=== PATIENT | female | born 1995 | race Caucasian/White ===

== ENCOUNTER 2018-06-05 13:40 | Inpatient (IN) | payer OTHER ==
[2018-06-05] MEDS ORDERED: DEXTROSE 5%-LACTATED RINGERS 1,000 ML IV SCH (20:08)
[2018-06-05 21:53] LABS: BASO % 0.3 % (0-2.0); EOS % 1.2 % (0-4.5); HEMATOCRIT 34.8 % (32.4-45.2); HEMOGLOBIN 11.6 GM/dL (10.7-15.3); LYMPH % 9.8 % (8-40); MCH 27.6 pg (25.7-33.7); MCHC 33.3 g/dl (32.0-36.0); MEAN CELL VOLUME 82.8 fl (80-96); MEAN PLT VOLUME 8.5 fl (7.5-11.1); MONO % 8.9 % (3.8-10.2); NEUT % 79.8 % (42.8-82.8); PLATELET COUNT 347 K/MM3 (134-434); RBC 4.21 M/mm3 (3.60-5.2); RDW 14.7 % (11.6-15.6); WHITE BLOOD COUNT 6.9 K/mm3 (4.0-10.0)
[2018-06-05 22:05] LABS: INR 0.93 (0.83-1.09)
[2018-06-05 22:07] LABS: ACTIVATED PTT 23.9 SECONDS (25.2-36.5)
[2018-06-05 22:12] LABS: ANION GAP 8 MMOL/L (8-16); BLOOD UREA NITROGEN 5 mg/dL (7-18); CALCIUM 8.5 mg/dL (8.5-10.1); CHLORIDE 106 mmol/L (98-107); CO2 23 mmol/L (21-32); CREATININE 0.4 mg/dL (0.55-1.3); GLUCOSE,RANDOM 67 mg/dL (74-106); POTASSIUM 3.9 mmol/L (3.5-5.1); SODIUM 137 mmol/L (136-145)
[2018-06-05] MEDS ORDERED: DINOPROSTONE 10 MG VAGINAL SUPPOSITORY VG ONE (23:15)
--- NOTE | 2018-06-05 23:15 | PN ---
Progress Note (short form) - Note Progress Note: Called to patient bedside for cervidil insertion Patient without complaints T 98.5 BP 133/72 HR 99 FHT 140 mod lilli + accel, no decels TOCO occasional contractions Cx / -4 Cervidil IOL discussed. Risks / benefits reviewed Cervidil placed in posterior fornix Patient tolerated well
[2018-06-05 23:24] VITALS: BMI 27.6
[2018-06-05] MEDS ORDERED: PROMETHAZINE HCL 25 MG/1 ML VIAL IVPUSH ONE (23:31)
[2018-06-05] MEDS ORDERED: BUTORPHANOL TARTRATE 1 MG/ML VIAL IVPB ONE (23:31)
--- NOTE | 2018-06-06 00:59 | HP ---
Past Medical History - Admission Chief Complaint: IOL, IUGR History of Present Illness: 23yo @ 39.3wks here for IOL for IUGR 9th percentile. No VB/LOF. No ctx. +FM Preg c/b elevated DSR on quad- nl amnio, IUGR 9th %tile on sonogram with MFM at [facility] (although EFW 6.5lbs). History of borderline personality disorder History Source: Patient Limitations to Obtaining History: No Limitations - Past Medical History [employer]: No: Alzheimer's, CVA, Dementia, Migraine, Multiple Sclerosis, Peripheral Neuropathy, Parkinson's, Seizure, Syncope, TIA, Vertigo, Other Pulmonary: No: Asthma, Bronchitis, Cancer, COPD, O2 Dependent, Pneumonia, Previously Intubated, Pulmonary Embolus, Pulmonary Fibrosis, Sleep Apnea, Other ...: 2 ...Para: 0 ...Term: 0 ...: 0 ...Spon : 0 ...Induced : 1 ...Multiple Gestation: 0 ...LMP: 08/26/17 ... Weeks Gestation by Dates: 40.3 ...EDC by Dates: 06/02/18 ...EDC by Sono: 06/10/18 Heme/Onc: No: Anemia, B12 Deficiency, Bleeding Disorder, Cancer, Current Chemotherapy, Current Radiation Therapy, Hemochromatosis, Hypercoaguable State, Myeloproliferative Synd, Sickle Cell Disease, Sickle Cell Trait, Thrombocytopenia, Other Infectious Disease: No: AIDS, C-Diff, Herpes Zoster, HIV, MRSA, STD's, Tuberculosis, VREF, Other Psych: No: Addictions, Anxiety, Bipolar, Depression, Panic, Psychosis, Schizophrenia, Other - Past Surgical History Past Surgical History: Yes: None Hx Myomectomy: No Hx Transabdominal Cerclage: No - Advance Directives Advance Directives: Yes: Living Will, MOLST. No: Health Care Proxy, DNR, Organ Donor, Tissue Donor - Smoking History Smoking history: Never smoked Have you smoked in the past 12 months: No - Alcohol/Substance Use Hx Alcohol Use: No History of Substance Use: reports: None - Social History Usual Living Arrangement: Yes: Alone ADL: Independent History of Recent Travel: No Home Medications - Allergies Allergies/Adverse Reactions: Allergies Allergy/AdvReac Type Severity Reaction Status Date / Time No Known Allergies Allergy Verified 05/24/18 16:43 - Home Medications Home Medications: Ambulatory Orders Iron 2 tab PO DAILY 06/05/18 Vitamins (Sjr) - 1 tab PO DAILY 06/05/18 Physical Exam - Maternity Vital Signs: Vital Signs Temperature 98.5 F 06/05/18 22:00 Pulse Rate 92 H 06/05/18 23:00 Respiratory Rate 20 06/05/18 23:00 Blood Pressure 126/72 06/05/18 23:00 O2 Sat by Pulse Oximetry (%) - Labs Lab Results: CBC, BMP 06/05/18 21:33 06/05/18 21:33 Assessment/Plan 23yo @ 39.3wks here for IOL for IUGR Admit to L&D Cervidil IOL Epidural prn pain Cat I tracing Augment with pitocin/AROM prn when more favorable Anticipate KULWANT Yeung MD
[2018-06-06] MEDS: DEXTROSE 5%-LACTATED RINGERS 1,000 ML IV SCH ×3 (03:15→18:00)
--- NOTE | 2018-06-06 09:53 | PN ---
Progress Note (short form) - Note Progress Note: 23 yrs , 39.3 weeks by sono & 40.2 weeks by dates s/p cervidil since 11.05 PM 06/05/18 . induction is done due to recommendation by MFM due to sono SGA 9 % tile , efw 6'5" . faiza 12.02 , BPP 8/8 , 39.2 weeks GA ( by Sono on 06/05/18 ) presently at 10.40 AM tachysystole uc q1 min FHR 170 bpm , variable decels , cat-2 are noted Cervidil removed . cx 1cm /post/70 %/AL , Vx -3 Selected Entries 06/06/18 06/06/18 08:00 09:15 Temperature 99.6 F Pulse Rate 93 H 79 Blood Pressure 128/59 L 121/61 ct Laboratory Tests 06/05/18 06/05/18 06/05/18 21:33 21:33 21:33 WBC 6.9 RBC 4.21 Hgb 11.6 Hct 34.8 Plt Count 347 PT with INR 11.00 INR 0.93 PTT (Actin FS) 23.9 L Sodium 137 Potassium 3.9 Chloride 106 Carbon Dioxide 23 BUN 5 L Creatinine 0.4 L Random Glucose 67 L Calcium 8.5 RPR Titer Blood Type Antibody Screen 06/05/18 06/05/18 21:33 21:33 WBC RBC Hgb Hct Plt Count PT with INR INR PTT (Actin FS) Sodium Potassium Chloride Carbon Dioxide BUN Creatinine Random Glucose Calcium RPR Titer Nonreactive Blood Type A POSITIVE Antibody Screen Negative Plan Ct Observation 10.15 AM UC are dysfunctional 1min x 5-6 Uc followed by pause 5-6 min FHR 160 bpm , cat-1 reactive plan will start Pitocin Induction after 11.00AM
[2018-06-06] MEDS ORDERED: OXYTOCIN 30 UNITS in 0.9% NS 30 UNIT/500 ML INFUS.BAG IVPB SCH (11:00)
--- NOTE | 2018-06-06 13:45 | PN ---
Progress Note (short form) - Note Progress Note: pt resting uc 2-3 min fhr 140-150 reactive , cat -1 . pitocin is not started yet. pelvic exam :13.30 Hr 1cm/70%/Vx-3/Post/OR Selected Entries 06/06/18 13:00 Temperature 98.8 F Pulse Rate 86 Blood Pressure 128/[address] Noble contact lens blocker and cutter , notified about patient for labor management .
--- NOTE | 2018-06-06 21:02 | PN ---
Progress Note (short form) - Note Progress Note: cx 3 cm 75 vx -2 , fhr cat 1, , irregular contraction, arom, clear
[2018-06-06] MEDS ORDERED: ELECTROLYTE-148 SOLN 1,000 ML IV SCH ×2 (21:30→22:30)
--- NOTE | 2018-06-06 22:07 | PN ---
Progress Note (short form) - Note Progress Note: cx 4 cm 80 vx -2 , early decel with contraction, ,acceleration with scalp stimulation . lt side, O2 , cont. observation and FHM,
[2018-06-06] MEDS ORDERED: NALOXONE HCL 0.4 MG/ML VIAL IVPUSH PRN (22:48)
[2018-06-06] MEDS ORDERED: FENTANYL/BUPIVACAINE/NS/PF - PCEA - 50 ML DISP.SYRIN EP SCH (23:00)
[2018-06-07] MEDS ORDERED: METHYLERGONOVINE MALEATE 0.2 MG/1 ML AMP IM PRN (01:59)
[2018-06-07] MEDS ORDERED: BENZOCAINE 28 GM HEMORRHOIDAL OINTMENT TP PRN (01:59)
[2018-06-07] MEDS ORDERED: BISACODYL 10 MG SUPP.RECT RC PRN (01:59)
[2018-06-07] MEDS ORDERED: D5W-LR W/ 20 UNITS OXYTOCIN 1,000 ML IV SCH (02:00)
[2018-06-07] MEDS ORDERED: OXYTOCIN 20 UNITS in 0.9% NS 20 UNIT/1,000 ML INFUS.BAG IV SCH (02:00)
--- NOTE | 2018-06-07 02:03 | PN ---
Delivery - Delivery Vaginal Delivery: Spontaneous Episiotomy/Laceration: Midline (TERRELL, cord around neck once, ant and post. shoulders with no difficulty , baby girl , 9/9 . episiotomy in 3 layes, ebl 300 cc, no complication) Delivery, Single - Feeding Plan Initial Plan: Exclusive throughout hospitalization
[2018-06-07 02:12] LABS: ARTERIAL BLOOD GAS PCO2 43.6 mmHg (35-45); ARTERIAL BLOOD GAS pH 7.32 (7.35-7.45)
[2018-06-07 02:22] LABS: VENOUS PH 7.33 (7.32-7.42); VENOUS PO2 32.1 mmHg (28-48)
[2018-06-07] MEDS: ACETAMINOPHEN 325 MG TABLET (FP) PO PRN ×4 (02:35→21:07)
[2018-06-07] MEDS: IBUPROFEN 600 MG TABLET (FP) PO PRN ×4 (02:35→21:07)
[2018-06-07] MEDS: PRENATAL VITAMINS W/ FOLIC ACID TABLET (FP) PO SCH (10:00)
[2018-06-07] MEDS: BENZOCAINE 20% 57 GM BOTTLE TP PRN (10:32)
[2018-06-07] MEDS: WITCH HAZEL 50% (TUCKS) 40 PAD/JAR PAD TP PRN (10:32)
[2018-06-07] MEDS: FERROUS SO4 325 MG TABLET (FP) PO SCH ×2 (15:17→17:08)
--- NOTE | 2018-06-07 19:22 | PN ---
Mental Health Exam - Mental Status Exam Alert and Oriented to: Time, Place, Person Cognitive Function: Grossly Intact Patient Appearance: Disheveled Mood: Apprehensive, Hopeful Affect: Constricted Patient Behavior: Dependent, Passive Speech Pattern: Clear Voice Loudness: Mildly Soft/Quiet Thought Process: Intact Thought Disorder: Not Present Hallucinations: None Suicidal Ideation: None Homicidal Ideation: None Insight/Judgement: Good Sleep: Fair Appetite: Fair Muscle strength/Tone: Normal Gait/Station: Shuffling
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
[2018-06-08] MEDS: ACETAMINOPHEN 325 MG TABLET (FP) PO PRN ×2 (06:56→17:09)
[2018-06-08] MEDS: IBUPROFEN 600 MG TABLET (FP) PO PRN ×2 (06:57→17:10)
[2018-06-08] MEDS: FERROUS SO4 325 MG TABLET (FP) PO SCH ×2 (06:59→16:57)
--- NOTE | 2018-06-08 08:12 | PN ---
Post Progress Note - Subjective Subjective: no complains except cramps , scale 7/10 no c/o depression Post Day: 1 Type of Delivery: Vital Signs: Vital Signs Temperature 98.2 F 06/07/18 22:00 Pulse Rate 84 06/07/18 22:00 Respiratory Rate 18 06/07/18 22:00 Blood Pressure 129/74 06/07/18 22:00 O2 Sat by Pulse Oximetry (%) 100 06/07/18 01:30 Breast Exam: Yes: Soft, Other (BF ). No: Engorged Uterus: Yes: Fundus Firm, Fundus below umbilicus Lochia: Yes: Rubra Lochia, amount: Moderate Extremities: Yes: Calves non-tender Perineum: Yes: Intact, Episiotomy (healing ) Activity: Ambulating - Labs Labs: CBC WBC 6.9 K/mm3 (4.0-10.0) 06/05/18 21:33 RBC 4.21 M/mm3 (3.60-5.2) 06/05/18 21:33 Hgb 11.6 GM/dL (10.7-15.3) 06/05/18 21:33 Hct 34.8 % (32.4-45.2) 06/05/18 21:33 MCV 82.8 fl (80-96) 06/05/18 21:33 MCH 27.6 pg (25.7-33.7) 06/05/18 21:33 MCHC 33.3 g/dl (32.0-36.0) 06/05/18 21:33 RDW 14.7 % (11.6-15.6) 06/05/18 21:33 Plt Count 347 K/MM3 (134-434) 06/05/18 21:33 MPV 8.5 fl (7.5-11.1) 06/05/18 21:33 Absolute Neuts (auto) 5.5 K/mm3 (1.5-8.0) 06/05/18 21:33 Neutrophils % 79.8 % (42.8-82.8) 06/05/18 21:33 Lymphocytes % 9.8 % (8-40) 06/05/18 21:33 Monocytes % 8.9 % (3.8-10.2) 06/05/18 21:33 Eosinophils % 1.2 % (0-4.5) 06/05/18 21:33 Basophils % 0.3 % (0-2.0) 06/05/18 21:33 Nucleated RBC % 0 % (0-0) 06/05/18 21:33 Problem List - Problems (1) Vaginal delivery Code(s): O80 - ENCOUNTER FOR FULL-TERM UNCOMPLICATED DELIVERY (2) Encounter for care and examination after delivery Code(s): Z39.2 - ENCOUNTER FOR ROUTINE FOLLOW-UP Assessment/Plan stable pp cbc pending psyce consult reviewed discharge tomorrow
[2018-06-08 09:45] LABS: BASO % 0.4 % (0-2.0); EOS % 2.7 % (0-4.5); HEMATOCRIT 27.8 % (32.4-45.2); HEMOGLOBIN 9.3 GM/dL (10.7-15.3); LYMPH % 15.1 % (8-40); MCH 27.8 pg (25.7-33.7); MCHC 33.7 g/dl (32.0-36.0); MEAN CELL VOLUME 82.6 fl (80-96); MEAN PLT VOLUME 7.9 fl (7.5-11.1); MONO % 12.1 % (3.8-10.2); NEUT % 69.7 % (42.8-82.8); PLATELET COUNT 254 K/MM3 (134-434); RBC 3.36 M/mm3 (3.60-5.2); RDW 14.5 % (11.6-15.6); WHITE BLOOD COUNT 4.9 K/mm3 (4.0-10.0)
[2018-06-08] MEDS: PRENATAL VITAMINS W/ FOLIC ACID TABLET (FP) PO SCH (10:26)
[2018-06-08] MEDS: BENZOCAINE 20% 57 GM BOTTLE TP PRN (10:26)
[2018-06-08] MEDS ORDERED: SENNOSIDES/DOCUSATE COMBO (SENNA PLUS) TABLET (UD) PO PRN (22:00)
[2018-06-09] MEDS: ACETAMINOPHEN 325 MG TABLET (FP) PO PRN ×2 (01:28→08:01)
[2018-06-09] MEDS: IBUPROFEN 600 MG TABLET (FP) PO PRN ×2 (01:29→08:02)
[2018-06-09] MEDS: FERROUS SO4 325 MG TABLET (FP) PO SCH (07:45)
[2018-06-09] MEDS: WITCH HAZEL 50% (TUCKS) 40 PAD/JAR PAD TP PRN (08:03)
[2018-06-09] MEDS: BENZOCAINE 20% 57 GM BOTTLE TP PRN (08:03)
--- NOTE | 2018-06-09 08:18 | PN ---
Post Progress Note - Subjective Subjective: ano comlains except cramps Post Day: 2 Type of Delivery: Vital Signs: Vital Signs Temperature 98.2 F 06/08/18 19:56 Pulse Rate 88 06/08/18 19:56 Respiratory Rate 20 06/08/18 19:56 Blood Pressure 132/80 06/08/18 19:56 O2 Sat by Pulse Oximetry (%) 100 06/07/18 01:30 Breast Exam: Yes: Soft. No: Engorged Uterus: Yes: Fundus Firm, Fundus below umbilicus, Non-tender Lochia: Yes: Rubra Lochia, amount: Moderate Extremities: Yes: Calves non-tender Perineum: Yes: Episiotomy (healing ) Activity: Ambulating - Labs Labs: CBC WBC 4.9 K/mm3 (4.0-10.0) 06/08/18 08:30 RBC 3.36 M/mm3 (3.60-5.2) L 06/08/18 08:30 Hgb 9.3 GM/dL (10.7-15.3) L 06/08/18 08:30 Hct 27.8 % (32.4-45.2) L D 06/08/18 08:30 MCV 82.6 fl (80-96) 06/08/18 08:30 MCH 27.8 pg (25.7-33.7) 06/08/18 08:30 MCHC 33.7 g/dl (32.0-36.0) 06/08/18 08:30 RDW 14.5 % (11.6-15.6) 06/08/18 08:30 Plt Count 254 K/MM3 (134-434) D 06/08/18 08:30 MPV 7.9 fl (7.5-11.1) 06/08/18 08:30 Absolute Neuts (auto) 3.4 K/mm3 (1.5-8.0) 06/08/18 08:30 Neutrophils % 69.7 % (42.8-82.8) 06/08/18 08:30 Lymphocytes % 15.1 % (8-40) D 06/08/18 08:30 Monocytes % 12.1 % (3.8-10.2) H 06/08/18 08:30 Eosinophils % 2.7 % (0-4.5) D 06/08/18 08:30 Basophils % 0.4 % (0-2.0) 06/08/18 08:30 Nucleated RBC % 0 % (0-0) 06/08/18 08:30 Problem List - Problems (1) Vaginal delivery Code(s): O80 - ENCOUNTER FOR FULL-TERM UNCOMPLICATED DELIVERY (2) Encounter for care and examination after delivery Code(s): Z39.2 - ENCOUNTER FOR ROUTINE FOLLOW-UP Assessment/Plan stable. pp anemia addressed & counselled discharge today
[2018-06-09 09:21] VITALS: BP 119/77; PULSE 76; TEMP 97.6
[2018-06-09] MEDS: PRENATAL VITAMINS W/ FOLIC ACID TABLET (FP) PO SCH (09:54)
== END 2018-06-09 13:30 | disposition home or self-care (01) | DRG 806 ==
LOC: JDEL 13:40 → JLDR 20:05 → J3W 06-07 03:45
PROVIDERS: ADMIT Obstetrics & Gynecology; ATTEND Obstetrics & Gynecology
PROC: 10E0XZZ Delivery of Products of Conception, External Approach (ICD-10-PCS; principal; 2018-06-06)
PROC: 0W8NXZZ Division of Female Perineum, External Approach (ICD-10-PCS; 2018-06-06)
DX: O36.5930 Maternal care for other known or suspected poor fetal growth, third trimester, not applicable or unspecified (principal); F33.0 Major depressive disorder, recurrent, mild; Z37.0 Single live birth; O99.344 Other mental disorders complicating childbirth; F60.3 Borderline personality disorder; F41.9 Anxiety disorder, unspecified; O99.02 Anemia complicating childbirth; O69.81X0 Labor and delivery complicated by cord around neck, without compression, not applicable or unspecified; D64.9 Anemia, unspecified; Z3A.39 39 weeks gestation of pregnancy
CPT/HCPCS: 36415; 36600; 59409; 76819-TC; 80048; 82803; 85025; 85610; 85730; 86593; 86850; 86900; 86901